=== PATIENT | female | born 1980 | race Caucasian/White ===

== ENCOUNTER → 2019-01-18 07:10 | Day surgery (SDC) | payer BC ==
[~2019-01-18 07:10] MED LIST: Acetaminophen IV 1GM/100ML * 100 ML ONE; Buffered Lidocaine 1% SYRIN* 1 ML/SYRINGE INTRADERM ONE; Bupivacaine 0.5% W/EPI SDV* 30 ML VIAL ONE; Dexamethasone TAB* 4 MG ONE; Dexamethasone TAB* 4 MG PO ONE; DiMENhydriNATE IV* 50 MG/ML VIAL IV PUSH PRN; EPHEDrine (Pressors)* 50 MG/ML VIAL ONE; Famotidine IV* 10 MG/ML 2 ML (20 mg) IV ONE; Famotidine IV* 10 MG/ML 2 ML (20 mg) ONE; HYDROmorphone INJ1* 1 MG/ML SYRINGE IV PRN; KETAMINE HCL* 50 MG/ML 10 ML VIAL ONE; Ketorolac INJ* 30 MG/ML 1 ML VIAL ONE; Lactated Ringers 1000 ML Bag* 1,000 ML IV SCH; Lidocaine 1% INJ* 10 MG/ML 30 ML SDV ONE; Midazolam* 1 MG/ML 5 ML VIAL (5 MG) ONE; Naloxone* 0.4 MG/ML 1 ML VIAL IV PRN; Ondansetron ODT TAB* 4 MG ONE; Ondansetron ODT TAB* 4 MG PO ONE; PROCHLORPERAZINE INJ 5 MG/ML 2 ML VIAL IV PRN; Propofol* 10 MG/ML 20 ML BTL ONE; Rocuronium* 10 MG/ML VIAL ONE; Sugammadex * 200 MG/2 ML VIAL IV PUSH ONE; fentaNYL* 50 MCG/ML 2 ML VIAL (100 MCG VIAL) IV PRN; fentaNYL* 50 MCG/ML 2 ML VIAL (100 MCG VIAL) ONE; oxyCODONE TAB* 5 MG TAB PO PRN
[2019-01-18 11:09] VITALS: BP 136/83
--- NOTE | 2019-01-18 16:01 | OP ---
CC: Herbert Loo MD * DATE OF OPERATION: 01/18/19 - [facility] DATE OF : 82 SURGEON: Fox Hodgson MD [employer] OPERATOR: Herbert Loo MD ANESTHESIOLOGIST: Dr. Odell. ANESTHESIA: General endotracheal anesthesia. PRE-OP DIAGNOSES: Multiparity, desires permanent sterilization; right perineal lesion. POST-OP DIAGNOSES: Multiparity, desires permanent sterilization; right perineal lesion. OPERATIVE PROCEDURE: Laparoscopic tubal interruption and excision of right perineal lesion. ESTIMATED BLOOD LOSS: Minimal less than 20 cc. SPECIMEN: Right perineal lesion. FLUIDS: Per Anesthesia. DRAINS: Ulloa catheter, 900 cc clear urine. FINDINGS: Normal-appearing midline small uterus, normal-appearing ovaries and fallopian tubes bilaterally. 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 There was a normal-appearing appendix. There was a 1-cm broad-based, fleshy, raised lesion on the right perineum. A 1.5-cm hydatid cyst was noted near the fimbria on the left fallopian tube. The stalk was very short and did not appear that it could wrap around the fallopian tube or any other structures, so it was left. The appendix appeared normal and the right perineal lesion was approximately 1 cm with the broad base on the right perineum. It was raised and fleshy, uniform in color. COMPLICATIONS: None. COUNTS: Sponge, lap, and needle counts were correct x2. CONDITION: The patient was brought to recovery room awake and in stable condition. DESCRIPTION OF PROCEDURE: The patient was brought to the operating room. When general anesthesia was found to be adequate, the patient was prepped and draped in the usual sterile fashion in the dorsal lithotomy position. Ulloa catheter was placed under sterile conditions. Time-out was performed. Urine was confirmed to be negative prior to the surgery. Lidocaine was instilled in the infraumbilical fold. A 5-mm skin incision was made with the scalpel. The fascia was identified using the Aleyda clamp. The fascia was grasped between two Lauren clamps and entered. The 5-mm trocar was placed. Correct placement was confirmed by the laparoscope. The abdomen was insufflated with CO2 gas. Under direct visualization, lidocaine was instilled 2 cm above the symphysis pubis in the midline. A 5-mm skin incision was made and the 5-mm trocar was placed. Each fallopian tube was followed out to the fimbriated end. The attention was then turned to the right fallopian tube, it was followed out to the fimbriated end and then cauterized in three separate locations with the Kleppinger cautery. Attention was then turned to the patient's left fallopian tube, which was followed out to the fimbriated end and cauterized in three separate locations with the Kleppinger. Excellent hemostasis was noted. The 5-mm suprapubic trocar was removed under direct visualization. The 5-mm infraumbilical trocar was removed. The fascia was closed using 0 Vicryl. No defect was palpated. The skin was closed with 4- 0 Vicryl. Glue was applied. Attention was then turned to the perineal lesion on the right. This was grasped with the forceps, excised in its entirety with the scalpel and two sutures of 4-0 Vicryl were placed. Excellent hemostasis was noted. Ulloa catheter was removed. The patient tolerated the procedure well. Sponge, lap, and needle counts were correct x2 and the patient was brought to recovery room awake and in stable condition. [id number] #: [id number] KATIE
== END | disposition home or self-care (01) ==
LOC: OR 07:10
PROVIDERS: ATTEND Obstetrics & Gynecology
PROC: 0HB9XZX Excision of Perineum Skin, External Approach, Diagnostic (ICD-10-PCS; 2019-01-18)
PROC: 0U574ZZ Destruction of Bilateral Fallopian Tubes, Percutaneous Endoscopic Approach (ICD-10-PCS; principal; 2019-01-18 08:30)
DX: Z30.2 Encounter for sterilization (principal); D22.5 Melanocytic nevi of trunk; M08.00 Unspecified juvenile rheumatoid arthritis of unspecified site; G47.30 Sleep apnea, unspecified; E78.00 Pure hypercholesterolemia, unspecified; Z87.891 Personal history of nicotine dependence
CPT/HCPCS: 81025; 88305; A9270-GY; J1885; J2250; J2704; J3010; J8540